=== PATIENT | female | born 2000 | race Caucasian/White ===

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

== ENCOUNTER → 2025-02-09 | Outpatient (CLI) | payer OTHER ==
[2025-02-09 13:07] LABS: CHOLESTEROL 123 mg/dL (<200); LDL CHOLESTEROL 62 mg/dL (9-159); TRIGLYCERIDES 84 mg/dl (<150)
== END | disposition home or self-care (01) ==
LOC: LAB 12:02
PROVIDERS: ATTEND Family Medicine
DX: Z02.1 Encounter for pre-employment examination (principal); R79.89 Other specified abnormal findings of blood chemistry; E78.5 Hyperlipidemia, unspecified

== ENCOUNTER → 2025-02-12 | Outpatient (CLI) | payer OTHER | END | disposition home or self-care (01) | LOC: CARD 00:07 | PROVIDERS: ATTEND Family Medicine | DX: Z02.1 Encounter for pre-employment examination (principal) ==